=== PATIENT | female | born 1950 | race Caucasian/White ===

== ENCOUNTER 2018-08-15 10:23 | Emergency (ER) | payer OTHER ==
[2018-08-15] MEDS ORDERED: NS 1,000 ML IV ONE (10:42)
--- NOTE | 2018-08-15 10:43 | EDPHY ---
HPI/HX/ROS/PE/MDM Narrative: CHIEF COMPLAINT: Vomiting and diarrhea HPI: The patient is a 68-year-old female with a history of high blood pressure. She reports nonbloody vomiting and diarrhea since yesterday morning. She denies abdominal pain specifically but does state that her entire body hurts. She denies any fever. She states that her , who is eaten most of the same foods, does not have any similar symptoms. She denies any recent antibiotic use. She denies any out of the country travel or unusual foods. Patient apparently drank coffee prior to her ED visit. REVIEW OF SYSTEMS: Aside from elements discussed in the HPI, a comprehensive 10-point review of systems was reviewed and is negative. PMH: Includes high blood pressure. She underwent a colonoscopy 1 week ago. SOCIAL HISTORY: Denies alcohol or drug abuse. PHYSICAL EXAM: General:Patient is alert, in no acute distress. ENT:Eyes are normal to inspection. ENT inspection normal. Neck: Normal inspection. Full range of motion. Respiratory:No respiratory distress. Breath sounds normal bilaterally. Cardiovascular: Regular rate and rhythm. Strong peripheral pulses. Normal cap refill. Abdomen:The abdomen is nontender to palpation. There are no peritoneal signs. There are normal bowel sounds. Back: Normal to inspection. No tenderness to palpation. Skin: Normal color. No rash. Warm and dry. Extremities: Normal appearance. Full range of motion. Neuro: Oriented x3. Normal motor function. Normal sensory function. ED Course: The patient was treated with IV fluids and on re-evaluation at 12:00 p.m., she feels much better. She was able to provide us with a stool sample which I have sent off for PCR. Patient's abdomen result means benign and she is tolerating oral fluids without difficulty. We will treat her with a dose of Imodium and Zofran and sent her home with a prescription for Zofran. She will call for results of stool studies. At this point I see no evidence of acute abdominal process such as diverticulitis or appendicitis given lack of abdominal pain or tenderness and normal white count, and no sign of GI bleed or sepsis. The patient is comfortable with this plan and we discussed strict return precautions. - Data Points Laboratory Results: 08/15/18 11:15 POC Sodium 143 mEq/L mEq/L (135-145) POC Potassium 3.0 mEq/L L mEq/L (3.3-5.0) POC Chloride 110.0 mEq/L mEq/L (97-110) POC Total CO2 23 mEq/L mEq/L (22-31) POC BUN 19 mg/dL mg/dL (7-23) POC Creatinine 1.0 mg/dL mg/dL (0.6-1.0) POC Glucose 102 mg/dL H mg/dL (70-100) POC Calcium 9.5 mg/dL mg/dL (8.5-10.4) POC Total Bilirubin 0.8 mg/dL mg/dL (0.1-1.4) POC AST 22 IU/L IU/L (14-46) POC ALT 14 IU/L IU/L (9-52) POC Alk Phosphatase 76 IU/L IU/L (38-126) POC Total Protein 7.2 g/dL g/dL (6.3-8.2) POC Albumin 3.7 g/dL g/dL (3.5-5.0) Point of Care Test Results: CBC CBC Collection Date 08/15/18 CBC Collection Time 10:45 WBC 9.3 RBC 4.80 HGB 15 HCT 43.7 PLT 193 Neut # 8.4 Neut 90.3 LYMPH # 0.7 LYMPH 8.0 Other WBC 1.7 MCV 91.0 Chemistry 08/15/18 11:15 POC Sodium 143 mEq/L mEq/L (135-145) POC Potassium 3.0 mEq/L L mEq/L (3.3-5.0) POC Chloride 110.0 mEq/L mEq/L (97-110) POC Total CO2 23 mEq/L mEq/L (22-31) POC BUN 19 mg/dL mg/dL (7-23) POC Creatinine 1.0 mg/dL mg/dL (0.6-1.0) POC Glucose 102 mg/dL H mg/dL (70-100) POC Calcium 9.5 mg/dL mg/dL (8.5-10.4) POC Total Bilirubin 0.8 mg/dL mg/dL (0.1-1.4) POC AST 22 IU/L IU/L (14-46) POC ALT 14 IU/L IU/L (9-52) POC Alk Phosphatase 76 IU/L IU/L (38-126) POC Total Protein 7.2 g/dL g/dL (6.3-8.2) POC Albumin 3.7 g/dL g/dL (3.5-5.0) General Time Seen by Provider: 08/15/18 10:28 Initial Vital Signs: Initial Vital Signs Temperature (C) 36.8 C 08/15/18 10:28 Heart Rate 80 08/15/18 10:28 Respiratory Rate 16 08/15/18 10:28 Blood Pressure 125/86 H 08/15/18 10:28 O2 Sat (%) 95 08/15/18 10:28 O2 Delivery Mode Room Air Allergies/Adverse Reactions: No Known Allergies Allergy (Verified 08/15/18 10:35) Home Medications: Medication Instructions Recorded Aspirin 81mg 04/10/10 VERAPAMIL HCL 240 mg PO DAILY 04/10/10 Ondansetron Odt [Zofran Odt] 4 mg PO Q4PRN PRN #10 tab 08/15/18 Paxil 08/15/18 Phentermine HCl 08/15/18 Topiramate 08/15/18 Departure - Departure Disposition: Home, Routine, Self-Care Clinical Impression: Acute gastroenteritis Condition: Good Instructions: Gastroenteritis (ED) Additional Instructions: Eat a bland diet and drink plenty of water. Return to the emergency department immediately for abdominal pain, fever, worsening of symptoms. Call the ER later this afternoon to obtain results of your stool studies. Follow up with her primary physician within 72 hr. Referrals: ALEX LOZANO [Other] - As per Instructions Prescriptions: Ondansetron Odt [Zofran Odt] 4 mg PO Q4PRN PRN #10 tab PRN Reason: Nausea
[2018-08-15] MEDS ORDERED: LOPERAMIDE HCL 2 MG CAP PO ONE (12:02)
[2018-08-15 12:17] VITALS: BP 132/91
== END 2018-08-15 12:25 | disposition home or self-care (01) ==
LOC: CED 10:23
DX: K52.9 Noninfective gastroenteritis and colitis, unspecified (principal)
CPT/HCPCS: 80053-PO